=== PATIENT | female | born 1990 | race Caucasian/White ===

== ENCOUNTER → 2016-10-17 | Outpatient (CLI) | payer OTHER ==
[~2016-10-17] MED LIST: ISOVUE-370 76% 100ML VIAL (Q9967) As Ordered ONE
--- NOTE | 2016-10-17 15:00 | REP ---
Hysterosalpingogram: History: Infertility. 46 seconds of fluoroscopy time was utilized. Findings: Endometrial cavity was cannulated by referring diving judge and contrast was injected. Fluoroscopic observation was provided and sequential spot films were obtained. These demonstrate filling of a normal endometrial cavity. Isthmic and ampullary segments of the fallopian tubes are opacified and bilateral peritoneal spillage is documented. Impression: Normal hysterosalpingography. Signed by Dima Fagan MD 10/17/2016 03:21 P
== END ==
LOC: M RADPRO 11:06
PROVIDERS: ATTEND Obstetrics & Gynecology
DX: N97.9 Female infertility, unspecified (principal)
CPT/HCPCS: 58340; 74740; Q9967